=== PATIENT | female | born 1995 | race Caucasian/White ===

== ENCOUNTER 2021-07-31 13:55 | Outpatient (CLI) | payer OTHER ==
[2021-07-31 15:58] LABS: Basophils # (Auto) 0.2 K/mm3 (0.0-0.1); Basophils % (Auto) 1.9 % (0.0-1.8); Eosinophils # (Auto) 0.1 K/mm3 (0.0-0.4); Eosinophils % (Auto) 1.1 % (0.0-4.3); Hematocrit 40.8 % (30.3-42.9); Hemoglobin 13.3 gm/dl (10.1-14.3); Lymphocytes # (Auto) 3.1 K/mm3 (1.2-5.4); Lymphocytes % (Auto) 33.2 % (13.4-35.0); Mean Corpuscular HGB Conc 33 % (30-34); Mean Corpuscular Volume 87 fl (79-97); Monocytes # (Auto) 0.4 K/mm3 (0.0-0.8); Monocytes % (Auto) 4.6 % (0.0-7.3); Platelet Count 265 K/mm3 (140-440); Red Blood Count 4.71 M/mm3 (3.65-5.03); Red Cell Distribution Width 13.9 % (13.2-15.2)
[2021-07-31 16:37] LABS: % Iron Saturation 18.75 %; Alanine Aminotransferase 15 units/L (7-56); Albumin 4.3 g/dL (3.9-5); BUN/Creatinine Ratio 14; Blood Urea Nitrogen 10 mg/dL (7-17); Calcium 9.3 mg/dL (8.4-10.2); HDL Cholesterol 45 mg/dL (40-59); Hemolysis Index 19; Iron 60 ug/dL (37-170); LDL Cholesterol,Direct 135 mg/dL (50-130); Total Iron Binding Capacity 320 mcg/dL (250-450)
== END 2021-07-31 13:56 | disposition home or self-care (01) ==
LOC: LAB 13:55
PROVIDERS: ATTEND Surgery
DX: Z01.812 Encounter for preprocedural laboratory examination (principal); Z13.1 Encounter for screening for diabetes mellitus; Z13.29 Encounter for screening for other suspected endocrine disorder; Z13.21 Encounter for screening for nutritional disorder; E66.01 Morbid (severe) obesity due to excess calories; E55.9 Vitamin D deficiency, unspecified; K30 Functional dyspepsia
CPT/HCPCS: 80053; 80061; 82306; 82607; 82728; 83036; 83550; 84443; 85025

== ENCOUNTER 2021-10-17 22:15 | Emergency (ER) | payer SELFPAY ==
[2021-10-17 22:53] VITALS: BP 110/79
--- NOTE | 2021-10-18 00:02 | XRay Report ---
Cervical spine 3 views INDICATION: Neck pain IMPRESSION: No fracture or subluxation. Mild disc osteophyte complex noted at C4-C5. Signer Name: Isaiah Baum MD Signed: 10/17/2021 11:58 PM Workstation Name: [id number]
--- NOTE | 2021-10-18 00:02 | XRay Report ---
Lumbar spine 2 views INDICATION: Low back pain IMPRESSION: No fracture or subluxation is identified. Mild bilateral neural foraminal narrowing at L5 -S1 secondary to slight facet arthropathy. Signer Name: Isaiah Baum MD Signed: 10/17/2021 11:57 PM Workstation Name: [employer]
== END 2021-10-19 09:54 | disposition left against medical advice (07) ==
LOC: ED 22:15
DX: M54.50 Low back pain, unspecified (principal); Z53.21 Procedure and treatment not carried out due to patient leaving prior to being seen by health care provider
CPT/HCPCS: 72040; 72100